=== PATIENT | female | born 1975 | race Asian ===

== ENCOUNTER 2020-07-02 11:55 | Inpatient (IN) | payer MEDICARE, MEDICAID ==
[~2020-07-02] VITALS: Ht 144.8 cm; Wt 51.2 kg
[2020-07-02] MEDS ORDERED: HALOPERIDOL 5 MG TABLET PO PRN (13:45)
[2020-07-02 13:50] VITALS: BP 88/58
[2020-07-02] MEDS ORDERED: DOCUSATE SODIUM 100 MG CAPSULE PO PRN ×2 (14:00→16:30)
[2020-07-02] MEDS ORDERED: CloNIDine HCL 0.1 MG TABLET PO PRN ×2 (14:00→16:30)
[2020-07-02] MEDS ORDERED: MAG HYDROX/AL HYDROX/SIMETH ES 30 ML SUSPENSION UDCUP PO PRN ×2 (14:00→16:30)
[2020-07-02] MEDS ORDERED: MAGNESIUM HYDROXIDE SUSPENSION 30 ML UDCUP PO PRN ×2 (14:00→16:30)
[2020-07-02] MEDS ORDERED: ONDANSETRON HCL 4 MG TABLET PO PRN ×2 (14:00→16:30)
[2020-07-02] MEDS ORDERED: GuaiFENesin/D-METHORPHAN [SUGAR-FREE] 200-20MG/10 ML SYRUP UDCUP PO PRN ×2 (14:00→16:30)
[2020-07-02] MEDS ORDERED: ALBUTEROL SULFATE HFA 90 MCG/PUFF 8 GM INHALER IH PRN ×3 (14:00→16:30)
[2020-07-02] MEDS ORDERED: LOPERAMIDE HCL 2 MG CAPSULE PO PRN ×2 (14:00→16:30)
[2020-07-02] MEDS ORDERED: IBUPROFEN 400 MG TABLET PO PRN ×2 (14:00→16:30)
[2020-07-02] MEDS ORDERED: NICOTINE 14 MG/24 HOUR PATCH TD PRN ×2 (14:00→16:30)
[2020-07-02] MEDS ORDERED: ACETAMINOPHEN 325 MG TABLET PO PRN (14:00)
[2020-07-02] MEDS ORDERED: PETROLATUM,WHITE 28 GM JELLY TP PRN ×2 (14:00→16:30)
[2020-07-02 14:11] VITALS: BP 88/58
[2020-07-02 16:00] VITALS: BP 95/60
[2020-07-02] MEDS: TiZANidine HCL 4 MG TABLET PO SCH (16:53)
[2020-07-02] MEDS: LORazepam 2 MG TABLET PO PRN (18:45)
[2020-07-02] MEDS: FLUTICASONE PROPIONATE 50 MCG/SPRAY 16 GM NASAL SPRAY NASAL SCH (20:17)
[2020-07-02] MEDS: ZOLPIDEM TARTRATE 10 MG TABLET PO PRN (20:57)
[2020-07-03] MEDS: ZOLPIDEM TARTRATE 10 MG TABLET PO PRN (00:59)
[2020-07-03 03:35] VITALS: BP 108/48
[2020-07-03 06:29] LABS: BASOPHILS % (AUTO) 0.8 % (0.0-2.0); EOSINOPHILS % (AUTO) 6.1 % (1.0-6.0); HEMATOCRIT 37.3 % (36-46); HEMOGLOBIN 12.1 g/dL (12.0-16.0); LYMPHOCYTES # (AUTO) 1.2 K/uL (1.0-4.8); LYMPHOCYTES % (AUTO) 46.4 % (22.0-44.0); MEAN CORPUSCULAR HEMOGLOBIN 25.2 pg (26.0-34.0); MEAN CORPUSCULAR HGB CONC 32.5 G/dL (31.0-37.0); MEAN CORPUSCULAR VOLUME 78 fL (80-100); MONOCYTES # (AUTO) 0.3 K/uL (0.1-1.0); MONOCYTES % (AUTO) 11.9 % (2.0-9.0); NEUTROPHILS # (AUTO) 0.9 K/uL (1.8-7.7); NEUTROPHILS % (AUTO) 34.8 % (40.0-70.0); PLATELET COUNT (AUTO) 286 K/uL (150-450); RED BLOOD CELL COUNT(AUTO) 4.79 MIL/uL (4.00-5.20); RED CELL DISTRIBUTION WIDTH 14.6 % (11.5-14.5)
[2020-07-03 06:44] LABS: HEMOGLOBIN A1C 5.3 % (3.8-5.6)
[2020-07-03 06:56] LABS: ALANINE AMINOTRANSFERASE 25 U/L (12-78); ALBUMIN 3.3 g/dL (3.4-5.0); ALKALINE PHOSPHATASE 56 U/L (46-116); ANION GAP 7 mmol/L (8-16); ASPARTATE AMINOTRANSFERASE 17 U/L (15-37); BILIRUBIN,TOTAL 0.1 mg/dL (0.1-1.0); CALCIUM, TOTAL 8.8 mg/dL (8.8-10.5); CARBON DIOXIDE 30 mmol/L (22-29); CHLORIDE 103 mmol/L (98-107); CREATININE 0.77 mg/dL (0.60-1.30); GLOMERULAR FILTR. RATE CALC > 60 mL/min (>60); GLUCOSE,RANDOM 96 mg/dL (70-110); POTASSIUM 4.1 mmol/L (3.5-5.1); SODIUM SERUM 140 mmol/L (136-145); THYROID STIMULATING HORMONE 0.69 uIU/mL (0.36-3.74); TOTAL PROTEIN, SERUM 7.2 g/dL (6.4-8.2); UREA NITROGEN, BLOOD 15 mg/dL (7-18)
[2020-07-03] MEDS: PANTOPRAZOLE SODIUM 40 MG DR TABLET PO SCH (07:00)
[2020-07-03 08:16] LABS: CHOL/HDL RATIO 3.3 (3.9-5.7)
[2020-07-03 08:40] VITALS: BP 98/63
[2020-07-03] MEDS: TiZANidine HCL 4 MG TABLET PO SCH ×2 (09:07→16:19)
[2020-07-03] MEDS: FLUTICASONE PROPIONATE 50 MCG/SPRAY 16 GM NASAL SPRAY NASAL SCH ×2 (09:10→20:53)
[2020-07-03 10:54] VITALS: BP 120/68
[2020-07-03 11:55] VITALS: BP 101/64
[2020-07-03] MEDS: LORazepam 2 MG TABLET PO PRN (13:03)
[2020-07-03 16:13] VITALS: BP 101/66
[2020-07-03] MEDS: ClonazePAM 0.5 MG TABLET PO SCH (17:48)
[2020-07-03] MEDS: BusPIRone HCL 5 MG TABLET PO SCH (20:53)
[2020-07-03] MEDS: TraZODone HCL 150 MG TABLET PO PRN (21:18)
[2020-07-04] MEDS: PANTOPRAZOLE SODIUM 40 MG DR TABLET PO SCH (07:32)
[2020-07-04] MEDS: FLUoxetine HCL 20 MG CAPSULE PO SCH (09:00)
[2020-07-04] MEDS: ClonazePAM 0.5 MG TABLET PO SCH ×2 (09:00→17:35)
[2020-07-04] MEDS: BusPIRone HCL 5 MG TABLET PO SCH ×3 (09:00→17:35)
[2020-07-04] MEDS: FLUTICASONE PROPIONATE 50 MCG/SPRAY 16 GM NASAL SPRAY NASAL SCH ×2 (09:00→20:03)
[2020-07-04] MEDS: TiZANidine HCL 4 MG TABLET PO SCH ×2 (09:00→17:34)
[2020-07-04 16:00] VITALS: BP 114/80
[2020-07-04] MEDS: TraZODone HCL 150 MG TABLET PO PRN (21:51)
[2020-07-05] MEDS: PANTOPRAZOLE SODIUM 40 MG DR TABLET PO SCH (07:05)
[2020-07-05] MEDS: FLUTICASONE PROPIONATE 50 MCG/SPRAY 16 GM NASAL SPRAY NASAL SCH ×2 (09:48→20:55)
[2020-07-05] MEDS: TiZANidine HCL 4 MG TABLET PO SCH ×2 (09:48→16:20)
[2020-07-05] MEDS: FLUoxetine HCL 20 MG CAPSULE PO SCH (09:48)
[2020-07-05] MEDS: BusPIRone HCL 5 MG TABLET PO SCH ×3 (09:48→16:18)
[2020-07-05] MEDS: ClonazePAM 0.5 MG TABLET PO SCH ×2 (09:49→16:19)
[2020-07-05 14:13] VITALS: BP 96/62
[2020-07-05 16:41] VITALS: BP 100/64
[2020-07-05] MEDS: TraZODone HCL 150 MG TABLET PO PRN (22:11)
[2020-07-06] MEDS: PANTOPRAZOLE SODIUM 40 MG DR TABLET PO SCH (06:26)
[2020-07-06] MEDS: FLUTICASONE PROPIONATE 50 MCG/SPRAY 16 GM NASAL SPRAY NASAL SCH ×2 (10:18→21:19)
[2020-07-06] MEDS: BusPIRone HCL 5 MG TABLET PO SCH ×3 (10:19→16:23)
[2020-07-06] MEDS: ClonazePAM 0.5 MG TABLET PO SCH ×2 (10:19→16:24)
[2020-07-06] MEDS: TiZANidine HCL 4 MG TABLET PO SCH ×2 (10:19→16:24)
[2020-07-06] MEDS: FLUoxetine HCL 20 MG CAPSULE PO SCH (10:19)
[2020-07-06 11:16] VITALS: BP 97/55
[2020-07-06 16:10] VITALS: BP 102/69
[2020-07-06] MEDS: ACETAMINOPHEN 325 MG TABLET PO PRN (17:16)
[2020-07-06] MEDS: TraZODone HCL 150 MG TABLET PO PRN (22:21)
[2020-07-07] MEDS: PANTOPRAZOLE SODIUM 40 MG DR TABLET PO SCH (06:20)
[2020-07-07] MEDS: ClonazePAM 0.5 MG TABLET PO SCH ×2 (08:48→16:13)
[2020-07-07 08:49] VITALS: BP 111/75
[2020-07-07] MEDS: BusPIRone HCL 5 MG TABLET PO SCH ×3 (08:49→16:13)
[2020-07-07] MEDS: FLUoxetine HCL 20 MG CAPSULE PO SCH (08:49)
[2020-07-07] MEDS: TiZANidine HCL 4 MG TABLET PO SCH ×2 (08:50→16:13)
[2020-07-07] MEDS: FLUTICASONE PROPIONATE 50 MCG/SPRAY 16 GM NASAL SPRAY NASAL SCH ×2 (08:50→20:24)
[2020-07-07 09:45] VITALS: BP 115/72
[2020-07-07] MEDS: ACETAMINOPHEN 325 MG TABLET PO PRN (09:45)
[2020-07-07 10:45] VITALS: BP 109/77
[2020-07-07 16:22] VITALS: BP 118/58
[2020-07-07] MEDS: TraZODone HCL 150 MG TABLET PO PRN (22:09)
[2020-07-08] MEDS: PANTOPRAZOLE SODIUM 40 MG DR TABLET PO SCH (06:32)
[2020-07-08 08:57] VITALS: BP 106/75
[2020-07-08] MEDS: FLUTICASONE PROPIONATE 50 MCG/SPRAY 16 GM NASAL SPRAY NASAL SCH (09:44)
[2020-07-08] MEDS: ClonazePAM 0.5 MG TABLET PO SCH (09:44)
[2020-07-08] MEDS: FLUoxetine HCL 20 MG CAPSULE PO SCH (09:45)
[2020-07-08] MEDS: TiZANidine HCL 4 MG TABLET PO SCH (09:45)
[2020-07-08] MEDS: BusPIRone HCL 5 MG TABLET PO SCH (09:45)
[2020-07-08] MEDS ORDERED: BUSP5TAB20 PO (11:26)
[2020-07-08] MEDS ORDERED: CLON-595 PO (11:27)
[2020-07-08] MEDS ORDERED: FLUO-191 PO (11:27)
[2020-07-08] MEDS ORDERED: PANT-31 PO (11:28)
[2020-07-08] MEDS ORDERED: FLUT16H NASAL (11:28)
[2020-07-08] MEDS ORDERED: TIZA2CAP PO (11:29)
== END 2020-07-08 13:00 | disposition home or self-care (01) | DRG 885 ==
LOC: 3EX 11:55
DX: F33.2 Major depressive disorder, recurrent severe without psychotic features (principal); R45.851 Suicidal ideations; E78.5 Hyperlipidemia, unspecified; F41.9 Anxiety disorder, unspecified; G80.9 Cerebral palsy, unspecified; H91.90 Unspecified hearing loss, unspecified ear; Z79.899 Other long term (current) drug therapy; Z91.5 Personal history of self-harm; D72.819 Decreased white blood cell count, unspecified; I95.9 Hypotension, unspecified
CPT/HCPCS: 80053; 80061; 83036; 84443; 85025; G0378